=== PATIENT | female | born 1940 | race Caucasian/White ===

== ENCOUNTER 2023-02-21 18:14 | Emergency (ER) | payer OTHER | END 2023-02-21 21:07 | disposition home or self-care (01) | LOC: ERS 18:14 | DX: S00.83XA Contusion of other part of head, initial encounter (principal); S60.212A Contusion of left wrist, initial encounter; K21.9 Gastro-esophageal reflux disease without esophagitis; I10 Essential (primary) hypertension; E78.5 Hyperlipidemia, unspecified; Z79.899 Other long term (current) drug therapy; Z79.01 Long term (current) use of anticoagulants; W19.XXXA Unspecified fall, initial encounter | CPT/HCPCS: 70450 ==